=== PATIENT | female | born 1955 | race Caucasian/White ===

== ENCOUNTER → 2017-04-25 | Outpatient (CLI) | payer OTHER, MEDICAID ==
[~2017-04-25] MED LIST: ALBU18HF PO; ARIP2TAB2 PO; ENOX40SY4 SQ; FLUT1DIS3 INH; LAMO200T3 PO; LEVO137T3 PO; LISI-167 PO; MORPHINE PO; ONDA4TAB7 PO; OXYC-302 PO; OXYC10TA6 PO; WARF4TAB7 PO
[2017-04-25 15:36] LABS: HEMATOCRIT 38.5 % (34.6-47.8); HEMOGLOBIN 12.9 g/dL (11.7-16.4); WHITE BLOOD COUNT 6.9 x10^3/uL (3.4-10)
[2017-04-25 15:49] LABS: ASPARTATE AMINO TRANSFERASE 13 U/L (15-37); BLOOD UREA NITROGEN 7 mg/dL (7-18)
== END | disposition home or self-care (01) ==
LOC: STAR 14:33
PROVIDERS: ATTEND Surgery
DX: Z01.818 Encounter for other preprocedural examination (principal); K80.10 Calculus of gallbladder with chronic cholecystitis without obstruction; T78.40XA Allergy, unspecified, initial encounter; X58.XXXA Exposure to other specified factors, initial encounter; R79.1 Abnormal coagulation profile
CPT/HCPCS: 36415; 80053; 85025; 85610; 85730

== ENCOUNTER 2017-04-30 14:53 | Observation (INO) | payer OTHER, MEDICAID ==
[~2017-04-30] VITALS: Ht 152.4 cm; Wt 77.9 kg
[~2017-04-30 14:53] MED LIST changes: +CEFAZOLIN 1,000 MG ONE; +DEXAMETHASONE 4 MG/ML, 1ML ONE; -ENOX40SY4 SQ; +GLYCOPYRROLATE 0.2MG/1ML, 5ML ONE; +METOCLOPRAMIDE 5 MG/ML, 2ML ONE; +NEOSTIGMINE 1 MG/ML, 10ML ONE; -ONDA4TAB7 PO; +ONDANSETRON 2MG/ML, 2ML ONE; -OXYC-302 PO; +PROPOFOL 10 MG/ML, 20ML ONE; +ROCURONIUM 10MG/ML,5ML ONE; +SUCCINYLCHOLINE 20 MG/ML, 10ML ONE
[2017-04-30] MEDS ORDERED: LIDOCAINE 1%, 2ML SQ PRN (15:30)
[2017-04-30] MEDS: LACTATED RINGERS 1,000 ML IV SCH (15:49)
[2017-04-30] MEDS ORDERED: ENOX40SY4 SQ (15:50)
[2017-04-30] MEDS ORDERED: EPINEPHRINE 1 MG/ML, 1ML ONE (15:56)
[2017-04-30] MEDS ORDERED: BUPIVACAINE/PF 0.5% ONE (15:56)
[2017-04-30] MEDS ORDERED: FENTANYL PF 100 MCG/2ML ONE (16:12)
[2017-04-30] MEDS ORDERED: HYDROmorphone 1 MG/ML, 1ML ONE (16:13)
[2017-04-30] MEDS ORDERED: FENTANYL PF 100 MCG/2ML IV PRN (16:30)
[2017-04-30] MEDS ORDERED: HYDROmorphone 1 MG/ML, 1ML IV PRN (16:30)
[2017-04-30] MEDS ORDERED: ACETAMINOPHEN 325 MG TABLET PO PRN (16:30)
[2017-04-30] MEDS ORDERED: OXYcodone 5 MG/5 ML ORAL.SOL UDC PO PRN (16:30)
[2017-04-30] MEDS ORDERED: hydrALAzine 20 MG/ML, 1ML IV PRN (16:30)
[2017-04-30] MEDS ORDERED: PROMETHAZINE 25 MG/ML, 1ML IV PRN (16:30)
[2017-04-30] MEDS ORDERED: LABETALOL 5MG/ML, 20ML IV PRN (16:30)
[2017-04-30] MEDS ORDERED: METOPROLOL 1 MG/ML, 5ML ONE (17:08)
[2017-04-30] MEDS ORDERED: OXYcodone 5 MG/5 ML ORAL.SOL UDC ONE (17:23)
[2017-04-30] MEDS ORDERED: ONDANSETRON 2MG/ML, 2ML ONE (17:39)
[2017-04-30] MEDS: ONDANSETRON 2MG/ML, 2ML IVPush PRN ×2 (17:42→21:50)
[2017-04-30] MEDS ORDERED: OXYcodone/APAP 5/325MG TABLET PO PRN (19:00)
[2017-04-30] MEDS ORDERED: MORPHINE SULFATE 4 MG/ML, 1ML IVPush PRN (19:00)
[2017-04-30] MEDS ORDERED: ONDANSETRON 2MG/ML, 2ML IVPush PRN (19:00)
[2017-04-30 20:00] VITALS: BP 132/67
[2017-04-30] MEDS ORDERED: OXYC-302 PO ×2 (20:45→20:47)
[2017-04-30] MEDS ORDERED: ONDA4TAB7 PO (20:46)
[2017-04-30] MEDS ORDERED: FLU VACC QS2017-18 (36MOS+) UP/PF 0.5 ML IM-VACC ONE (22:00)
[2017-05-01] MEDS: LACTATED RINGERS 1,000 ML IV SCH (00:32)
[2017-05-01 05:21] VITALS: BP 143/84
== END 2017-05-01 07:42 | disposition home or self-care (01) ==
LOC: OR 14:53 → 4NOR 18:21 → OR 23:55
PROVIDERS: ADMIT Surgery; ATTEND Surgery
DX: K80.10 Calculus of gallbladder with chronic cholecystitis without obstruction (principal); I10 Essential (primary) hypertension; E03.9 Hypothyroidism, unspecified; F32.9 Major depressive disorder, single episode, unspecified; F17.210 Nicotine dependence, cigarettes, uncomplicated; J44.9 Chronic obstructive pulmonary disease, unspecified; Z83.3 Family history of diabetes mellitus; Z82.49 Family history of ischemic heart disease and other diseases of the circulatory system; Z80.9 Family history of malignant neoplasm, unspecified; Z23 Encounter for immunization
CPT/HCPCS: 36415; 47562; 85610; 85730; 88304; 90686; 96374; 96375; G0008; G0378; J0171; J0330; J0690; J1100; J1170; J2405; J2704; J2710; J2765; J3010; J3490; J7120; 90471

== ENCOUNTER 2017-08-26 14:06 | Emergency (ER) | payer MEDICAID, OTHER ==
[~2017-08-26] VITALS: Ht 152.4 cm; Wt 76.0 kg
[~2017-08-26 14:06] MED LIST changes: -CEFAZOLIN 1,000 MG ONE; -DEXAMETHASONE 4 MG/ML, 1ML ONE; +ENOX40SY4 SQ; -GLYCOPYRROLATE 0.2MG/1ML, 5ML ONE; -METOCLOPRAMIDE 5 MG/ML, 2ML ONE; -NEOSTIGMINE 1 MG/ML, 10ML ONE; +ONDA4TAB7 PO; -ONDANSETRON 2MG/ML, 2ML ONE; +OXYC-302 PO; -PROPOFOL 10 MG/ML, 20ML ONE; -ROCURONIUM 10MG/ML,5ML ONE; -SUCCINYLCHOLINE 20 MG/ML, 10ML ONE
[2017-08-26] MEDS ORDERED: SODIUM CHLORIDE 0.9% 1,000 ML IV ONE (14:28)
[2017-08-26] MEDS ORDERED: ONDANSETRON 2MG/ML, 2ML IVPush ONE (14:30)
[2017-08-26] MEDS ORDERED: MORPHINE SULFATE 4 MG/ML, 1ML IVPush PRN (14:30)
[2017-08-26] MEDS ORDERED: SODIUM CHLORIDE FLUSH 10ML SYR IVF ONE (14:30)
[2017-08-26] MEDS ORDERED: SODIUM CHLORIDE 0.9% 1,000ML IVBOLUS ONE (14:30)
[2017-08-26 14:44] LABS: BASOPHILS # (AUTO) 0.02 x10^3/uL (0-0.1); BASOPHILS % (AUTO) 0 % (0-1); EOSINOPHILS # (AUTO) 0.04 x10^3/uL (0-0.4); EOSINOPHILS % (AUTO) 1 % (1-7); LYMPHOCYTES # (AUTO) 1.56 x10^3/uL (1-3.4); LYMPHOCYTES % (AUTO) 19 % (22-44); MD NO; MEAN CORPUSCULAR HEMOGLOBIN 26.7 pg (27.0-34.8); MEAN CORPUSCULAR HGB CONC 33.3 g/dL (32.4-35.8); MEAN CORPUSCULAR VOLUME 79.9 fL (80-100); MEAN PLATELET VOLUME 8.1 fL (7.4-10.4); MONOCYTES % (AUTO) 2 % (2-9); NEUTROPHILS # (AUTO) 6.45 x10^3/uL (1.8-6.8); NEUTROPHILS % (AUTO) 78 % (42-75); PLATELET COUNT 367 x10^3/uL (130-400); RED BLOOD COUNT 5.45 x10^6/uL (3.82-5.3); RED CELL DISTRIBUTION WIDTH 17.6 % (9.6-15.2)
[2017-08-26] MEDS ORDERED: ONDANSETRON 2MG/ML, 2ML ONE (14:44)
[2017-08-26] MEDS ORDERED: MORPHINE SULFATE 4 MG/ML, 1ML ONE (14:44)
[2017-08-26 14:54] LABS: ALBUMIN 3.6 g/dL (3.4-5.0); ANION GAP 7 mmol/L (5-15); CALCIUM 8.7 mg/dL (8.5-10.1); CHLORIDE 107 mmol/L (98-107)
[2017-08-26 14:57] LABS: ALANINE AMINOTRANSFERASE 52 U/L (12-78); ALKALINE PHOSPHATASE 209 U/L (45-117); BILIRUBIN,TOTAL 0.7 mg/dL (0.2-1.0); CREATININE 0.83 mg/dL (0.55-1.02)
[2017-08-26] MEDS ORDERED: OMEP-110 PO (15:03)
[2017-08-26 15:04] LABS: RAPID INFLUENZA A Negative (Negative); RAPID INFLUENZA B Negative (Negative)
[2017-08-26] MEDS ORDERED: METOCLOPRAMIDE 5 MG/ML, 2ML ONE (15:15)
[2017-08-26] MEDS ORDERED: METOCLOPRAMIDE 5 MG/ML, 2ML IVPush ONE (15:30)
[2017-08-26 15:35] LABS: INTERNATIONAL NORMALIZED RATIO 1.1 (0.93-1.1); PROTHROMBIN TIME 11.3 Seconds (9.6-11.5)
[2017-08-26] MEDS ORDERED: PROMETHAZINE 25 MG/ML, 1ML ONE (16:44)
[2017-08-26] MEDS ORDERED: PROMETHAZINE 25 MG/ML, 1ML IM ONE (17:00)
[2017-08-26 18:21] VITALS: BP 148/68
[2017-08-26 18:25] LABS: MICROSCOPIC NOT IND
[2017-08-26 18:27] LABS: CULTURE INDICATED? NO
== END 2017-08-26 19:02 | disposition home or self-care (01) ==
LOC: ED 14:23
DX: K52.9 Noninfective gastroenteritis and colitis, unspecified (principal); I10 Essential (primary) hypertension; J44.9 Chronic obstructive pulmonary disease, unspecified; Z79.01 Long term (current) use of anticoagulants; Z90.49 Acquired absence of other specified parts of digestive tract
CPT/HCPCS: 36415; 74022; 80053; 81003; 83690; 85025; 85610; 87400; 96361; 96372; 96374; 96375; 99285; J2405; J2550; J2765; J7030

== ENCOUNTER 2019-05-30 14:52 | Inpatient (IN) | payer MEDICARE ==
[~2019-05-30] VITALS: Ht 165.1 cm; Wt 73.6 kg
[~2019-05-30 14:52] MED LIST changes: +ATOR20TA86 PO; +GABA-826 PO; +LEVO125T5 PO; +LISI40TA PO; +OMEP-110 PO; +RIVA20TA PO; +UMEC1DIS INH; +WARF4TAB65 PO; -WARF4TAB7 PO
--- NOTE | 2019-05-30 15:41 | NUR ---
I HAVE HELPED SUDARSHAN GET THIS PATIENT SETTLED. HER CONFUSION HAS RESOLVED SINCE HER VISIT TO [facility]. WE ARE LIKELY AWAITING MD TO ASSESS/ADMIT.
[2019-05-30] MEDS ORDERED: SODIUM CHLORIDE 0.9% 1,000 ML IV ONE ×2 (15:56→16:17)
[2019-05-30] MEDS ORDERED: SODIUM CHLORIDE FLUSH 10ML SYR IVF PRN (16:30)
--- NOTE | 2019-05-30 16:47 | NUR ---
[facility] POCKET SETTER AT BEDSIDE FOR EVALUATION
[2019-05-30] MEDS: SODIUM CHLORIDE 0.9% 1,000 ML IV SCH (16:57)
[2019-05-30] MEDS ORDERED: hydrALAzine 20 MG/ML, 1ML IVPush PRN (17:00)
[2019-05-30] MEDS ORDERED: LABETALOL 5MG/ML, 20ML IVPush PRN (17:00)
[2019-05-30] MEDS ORDERED: ONDANSETRON ODT 4 MG PO PRN (17:00)
[2019-05-30] MEDS ORDERED: ONDANSETRON 2MG/ML, 2ML IVPush PRN (17:00)
[2019-05-30] MEDS ORDERED: HEPARIN 5,000 UNITS/ML, 1ML SQ SCH (17:00)
[2019-05-30] MEDS ORDERED: ALBUTEROL SULFATE 2.5 MG/3 ML NPPB PRN (17:30)
--- NOTE | 2019-05-30 17:46 | NUR ---
REPORT CALLED TO RECIEVEING RN. FAMILY AND PT AWARE OF TRANSFER.
[2019-05-30] MEDS: ACETAMINOPHEN 325 MG TABLET PO PRN (18:35)
[2019-05-30 19:49] VITALS: BP 99/60
[2019-05-30] MEDS: RIVAROXABAN 20 MG TABLET PO SCH (22:19)
[2019-05-30] MEDS: ATORVASTATIN 20 MG TABLET PO SCH (22:19)
[2019-05-30 23:04] LABS: MICROSCOPIC NOT IND
[2019-05-30 23:07] LABS: CULTURE INDICATED? NO
[2019-05-31] MEDS: ACETAMINOPHEN 325 MG TABLET PO PRN ×2 (01:16→08:58)
[2019-05-31 01:31] VITALS: BP 99/61
[2019-05-31] MEDS: SODIUM CHLORIDE 0.9% 1,000 ML IV SCH (03:04)
[2019-05-31 05:47] LABS: MEAN CORPUSCULAR HEMOGLOBIN 29.3 pg (27.0-34.8); MEAN CORPUSCULAR HGB CONC 33.5 g/dL (32.4-35.8); MEAN CORPUSCULAR VOLUME 87.4 fL (80-100); MEAN PLATELET VOLUME 8.9 fL (7.4-10.4); PLATELET COUNT 120 x10^3/uL (130-400); RED CELL DISTRIBUTION WIDTH 15.3 % (9.6-15.2)
[2019-05-31 05:50] LABS: ANION GAP 5 mmol/L (5-15); CALCIUM 6.8 mg/dL (8.5-10.1); CHLORIDE 115 mmol/L (98-107)
[2019-05-31 05:51] LABS: CREATININE 1.05 mg/dL (0.55-1.02)
[2019-05-31 06:14] LABS: BASOPHILS # (AUTO) 0.01 x10^3/uL (0-0.1); BASOPHILS % (AUTO) 0 % (0-1); EOSINOPHILS # (AUTO) 0.01 x10^3/uL (0-0.4); EOSINOPHILS % (AUTO) 1 % (1-7); LYMPHOCYTES # (AUTO) 2.26 x10^3/uL (1-3.4); LYMPHOCYTES % (AUTO) 73 % (22-44); MD SCAN; MONOCYTES % (AUTO) 7 % (2-9); NEUTROPHILS # (AUTO) 0.62 x10^3/uL (1.8-6.8); NEUTROPHILS % (AUTO) 20 % (42-75)
[2019-05-31] MEDS: LEVOTHYROXINE 125 MCG TABLET PO SCH (06:18)
[2019-05-31 08:25] VITALS: BP 113/68
[2019-05-31] MEDS ORDERED: ACETAMINOPHEN 325 MG TABLET PO PRN (09:30)
[2019-05-31 10:36] LABS: CLOSTRIDIUM DIFFICILE ANTIGEN NEGATIVE; CLOSTRIDIUM DIFFICILE TOXIN NEGATIVE (Negative)
[2019-05-31 13:54] VITALS: BP 134/78
[2019-05-31] MEDS ORDERED: SODIUM CHLORIDE 0.9% 1,000 ML IV SCH (16:57)
[2019-05-31] MEDS: LACTOBACILLUS CHEW TABLET PO SCH ×2 (17:07→19:46)
[2019-05-31 19:36] VITALS: BP 133/75
[2019-05-31] MEDS: RIVAROXABAN 20 MG TABLET PO SCH (19:46)
[2019-05-31] MEDS: ATORVASTATIN 20 MG TABLET PO SCH (19:46)
[2019-06-01 01:17] VITALS: BP 117/67
[2019-06-01] MEDS: LEVOTHYROXINE 125 MCG TABLET PO SCH (05:08)
[2019-06-01 05:56] LABS: BASOPHILS # (AUTO) 0.01 x10^3/uL (0-0.1); BASOPHILS % (AUTO) 0 % (0-1); EOSINOPHILS # (AUTO) 0.02 x10^3/uL (0-0.4); EOSINOPHILS % (AUTO) 0 % (1-7); LYMPHOCYTES # (AUTO) 1.91 x10^3/uL (1-3.4); LYMPHOCYTES % (AUTO) 39 % (22-44); MD NO; MEAN CORPUSCULAR HEMOGLOBIN 29.4 pg (27.0-34.8); MEAN CORPUSCULAR HGB CONC 33.9 g/dL (32.4-35.8); MEAN CORPUSCULAR VOLUME 86.8 fL (80-100); MEAN PLATELET VOLUME 8.7 fL (7.4-10.4); MONOCYTES # (AUTO) 0.24 x10^3/uL (0.2-0.8); MONOCYTES % (AUTO) 5 % (2-9); NEUTROPHILS # (AUTO) 2.72 x10^3/uL (1.8-6.8); NEUTROPHILS % (AUTO) 56 % (42-75); PLATELET COUNT 123 x10^3/uL (130-400); RED BLOOD COUNT 4.41 x10^6/uL (3.82-5.3); RED CELL DISTRIBUTION WIDTH 16.1 % (9.6-15.2)
[2019-06-01 06:05] LABS: ALANINE AMINOTRANSFERASE 16 U/L (12-78); ALBUMIN 2.9 g/dL (3.4-5.0); ANION GAP 5 mmol/L (5-15); CHLORIDE 118 mmol/L (98-107); CREATININE 0.76 mg/dL (0.55-1.02)
[2019-06-01 06:08] LABS: ALKALINE PHOSPHATASE 69 U/L (45-117); BILIRUBIN,TOTAL 0.4 mg/dL (0.2-1.0); TOTAL PROTEIN 5.8 g/dL (6.4-8.2)
[2019-06-01 07:20] VITALS: BP 178/91
[2019-06-01] MEDS ORDERED: DIPHENOXYLATE/ATROPINE TABLET PO PRN (09:30)
[2019-06-01] MEDS: LACTOBACILLUS CHEW TABLET PO SCH ×3 (09:42→20:16)
[2019-06-01 09:45] VITALS: BP 144/81
[2019-06-01 13:40] VITALS: BP 175/75
[2019-06-01] MEDS ORDERED: SODIUM CHLORIDE 0.9% 1,000 ML IV SCH (16:57)
[2019-06-01 19:43] VITALS: BP 168/75
[2019-06-01] MEDS: ATORVASTATIN 20 MG TABLET PO SCH (20:16)
[2019-06-01] MEDS: CALCIUM/VITAMIN D3 250-125 TABLET PO SCH (20:16)
[2019-06-01] MEDS: RIVAROXABAN 20 MG TABLET PO SCH (20:16)
[2019-06-02 02:41] VITALS: BP 157/75
[2019-06-02] MEDS: LEVOTHYROXINE 125 MCG TABLET PO SCH (05:41)
[2019-06-02 07:57] VITALS: BP 159/88
[2019-06-02] MEDS: LACTOBACILLUS CHEW TABLET PO SCH (09:32)
[2019-06-02] MEDS: CALCIUM/VITAMIN D3 250-125 TABLET PO SCH (09:32)
[2019-06-02] MEDS ORDERED: CALC1TAB68 PO (10:14)
[2019-06-02] MEDS ORDERED: ACID1TAB7 PO (10:14)
[2019-06-02] MEDS ORDERED: LOPE-114 PO (10:14)
[2019-06-02] MEDS ORDERED: SODIUM CHLORIDE 0.9% 1,000 ML IV SCH (16:57)
== END 2019-06-02 11:36 | disposition home or self-care (01) | DRG 640 ==
LOC: ED 16:02 → EDIP 16:17 → 4EST 18:08 → DCLOUNGE 06-02 11:27
PROVIDERS: ADMIT Family Medicine; ATTEND Internal Medicine
DX: E86.0 Dehydration (principal); N17.0 Acute kidney failure with tubular necrosis; R11.2 Nausea with vomiting, unspecified; R19.7 Diarrhea, unspecified; D69.6 Thrombocytopenia, unspecified; E83.51 Hypocalcemia; J44.9 Chronic obstructive pulmonary disease, unspecified; D72.819 Decreased white blood cell count, unspecified; E03.9 Hypothyroidism, unspecified; F17.210 Nicotine dependence, cigarettes, uncomplicated; G47.00 Insomnia, unspecified; G47.30 Sleep apnea, unspecified; I10 Essential (primary) hypertension; I25.10 Atherosclerotic heart disease of native coronary artery without angina pectoris; Z66 Do not resuscitate; I25.2 Old myocardial infarction; Z79.01 Long term (current) use of anticoagulants; Z85.42 Personal history of malignant neoplasm of other parts of uterus; Z85.850 Personal history of malignant neoplasm of thyroid; Z86.718 Personal history of other venous thrombosis and embolism; Z90.710 Acquired absence of both cervix and uterus; Z99.81 Dependence on supplemental oxygen
CPT/HCPCS: 36415; 80048; 80053; 81003; 82330; 83735; 84100; 84145; 85025; 87324; 93005; 96374; G0378; J2405; Q0162; J7030